=== PATIENT | female | born 1980 | race Caucasian/White ===

== ENCOUNTER 2018-09-30 13:35 | Outpatient (CLI) | payer OTHER | END 2018-09-30 13:36 | disposition home or self-care (01) | LOC: DTY/OP 13:35 | PROVIDERS: ATTEND Surgery | DX: E66.01 Morbid (severe) obesity due to excess calories (principal) | CPT/HCPCS: 97802 ==

== ENCOUNTER 2018-11-01 08:55 | Outpatient (CLI) | payer OTHER | END 2018-11-01 08:56 | disposition home or self-care (01) | LOC: DTY/OP 08:55 | PROVIDERS: ATTEND Surgery | DX: E66.01 Morbid (severe) obesity due to excess calories (principal) | CPT/HCPCS: 97802 ==

== ENCOUNTER 2018-11-30 09:52 | Outpatient (CLI) | payer OTHER | END 2018-11-30 09:53 | disposition home or self-care (01) | LOC: DTY/OP 09:52 | PROVIDERS: ATTEND Surgery | DX: E66.01 Morbid (severe) obesity due to excess calories (principal) | CPT/HCPCS: 97802 ==

== ENCOUNTER 2019-02-07 02:05 | Outpatient (CLI) | payer OTHER ==
[2019-02-07 09:40] LABS: #Basophils 0.1 thou/uL (0.0-0.2); #Eosinphils 0.2 thou/uL (0.0-0.7); #Lymphocytes 2.4 thou/uL (1.20-3.40); #Monocytes 0.4 thou/uL (0.11-0.59); %Basophils 0.9 % (0.0-1.0); %Eosinophils 2.6 % (0.0-10.0); %Lymphocytes 34.3 % (21.0-51.0); %Monocytes 6.1 % (0.0-10.0); %Neutrophils 56.2 % (42.0-75.0); Hemoglobin 12.8 g/dL (12.0-16.0); Mean Corpuscular HGB CONC 32.5 g/dL (32.0-36.0); Mean Corpuscular Hemoglobin 26.5 pg (27.0-31.0); Mean Corpuscular Volume 81.3 fL (78.0-98.0); Mean Platelet Volume 7.2 fL (7.4-10.4); Platelet Count 431 thou/uL (130-400); RBC Distribution Width 12.6 % (11.5-14.5); Red Blood Cell (RBC) Count 4.84 mill/uL (4.20-5.40)
[2019-02-07 09:45] LABS: BHCG - Serum Negative (NEGATIVE); Pregs Control Background? CLEAR/WHITE (CLR/WHITE); Pregs Control Bar Appear? YES (CONTROL BAR)
[2019-02-07 09:59] LABS: Hemoglobin A1c 4.4 % (4.0-6.0)
[2019-02-07 10:00] LABS: ALT (SGPT) 31 U/L (8-55); AST (SGOT) 26 U/L (5-34); Albumin 4.2 g/dL (3.5-5.0); Alkaline Phosphatase 69 U/L (40-150); Anion Gap 11 mmol/L (10-20); BUN (Urea Nitrogen) 14 mg/dL (7.0-18.7); Bilirubin, Direct 0.2 mg/dL (0.1-0.3); Bilirubin, Total 0.5 mg/dL (0.2-1.2); Calc. Creatinine Clearance 0 mL/min (70-130); Calcium 9.4 mg/dL (7.8-10.44); Carbon Dioxide 26 mmol/L (22-29); Chloride 106 mmol/L (98-107); Estimated GFR-MDRD 90; Globulin 3.5 g/dL (2.4-3.5); Glucose 84 mg/dL (70-105); Potassium 3.9 mmol/L (3.5-5.1); Protein, Total 7.7 g/dL (6.0-8.3); Sodium 139 mmol/L (136-145)
--- NOTE | 2019-02-07 11:45 | RAD ---
PA AND LATERAL OF THE CHEST: INDICATION: Preop evaluation. COMPARISON: None. FINDINGS: Lungs are clear. Heart size is normal. No acute osseous abnormality is evident. There are cholecys tectomy clips within the right upper quadrant. There is mild spondylosis of the thoracic spine. The re are cholecystectomy clips within the right upper quadrant. There is mild fullness of the thoracic spine. IMPRESSION: No acute cardiopulmonary abnormality. POS: C
== END 2019-02-07 02:06 | disposition home or self-care (01) ==
LOC: LABBT 02:05
PROVIDERS: ATTEND Surgery
DX: Z01.818 Encounter for other preprocedural examination (principal); E66.01 Morbid (severe) obesity due to excess calories
CPT/HCPCS: 71046; 80053; 80076; 83036; 84703; 85025; 93005; 93010

== ENCOUNTER 2019-02-07 08:30 | Inpatient (IN) | payer OTHER ==
[2019-02-07 08:43] VITALS: BMI 55.7
[2019-02-17] MEDS ORDERED: Heparin 5,000 UNITS/ML VIAL ONE (06:37)
[2019-02-17] MEDS ORDERED: Fentanyl 100 MCG/2 ML VIAL ONE (06:50)
[2019-02-17] MEDS ORDERED: PROPOFOL 40 ML ONE (06:50)
[2019-02-17] MEDS ORDERED: Rocuronium Bromide 50 MG/5 ML VIAL ONE (06:50)
[2019-02-17] MEDS ORDERED: PROPOFOL 20 ML ONE (06:53)
[2019-02-17] MEDS ORDERED: Bupivacaine/Epinephrine 0.25% 30 ML VIAL ONE (06:56)
[2019-02-17] MEDS ORDERED: Midazolam HCl 2 mg/2 ml Vial ONE (07:16)
--- NOTE | 2019-02-17 08:09 | HP ---
CHIEF COMPLAINT: Morbid obesity. HISTORY OF PRESENT ILLNESS: The patient is a 38-year-old female, who has been morbidly obese for many years, attempted multiple weight loss programs without success. She is here for sleeve gastrectomy. PAST MEDICAL HISTORY: Significant for morbid obesity, gastroesophageal reflux, and asthma. PAST SURGICAL HISTORY: She has had pilonidal cyst excision, rectal abscess, bilateral tubal ligation, and a cholecystectomy. MEDICATIONS: 1. Contrave. 2. Polymyxin-trimethoprim. 3. Lactulose. 4. Gentamicin ophthalmic solution. FAMILY HISTORY: Parents are alive in good health. Mother had diabetes and kidney cancer. SOCIAL HISTORY: She is . She is a patient rep. Occasional alcohol. No tobacco. ALLERGIES: SHE HAS NO KNOWN DRUG ALLERGIES. PHYSICAL EXAMINATION: VITAL SIGNS: Height 59, weight 276, and body mass index 55.7. GENERAL: Well-developed, well-nourished female, in no apparent distress. HEENT: Good hair growth. No alopecia. Pupils are equal, round, and reactive. Extraocular motor intact. NECK: Supple. No thyroid masses. No carotid bruits. LUNGS: Clear. HEART: Regular rate and rhythm. BREASTS: There are no palpable breast masses. No lymphadenopathy. ABDOMEN: Obese, soft, and nontender. No palpable masses or hernias. EXTREMITIES: Good pulses. No pedal edema. BACK: Nontender. No spinal deformity. ASSESSMENT: Morbid obesity. PLAN: Laparoscopic sleeve gastrectomy. CONSENT: I discussed planned procedure as well as risk of bleeding, infection, injury to esophagus, bleeding, loops of bowel, need to open, leakage from staple line. She understands and gives informed consent. Job ID: [id number]
[2019-02-17] MEDS ORDERED: Promethazine HCl 25 MG/ML VIAL IM PRN ×3 (09:02→09:52)
[2019-02-17] MEDS ORDERED: diphenhydrAMINE 50 MG/ML VIAL IVP PRN ×2 (09:02→09:52)
[2019-02-17] MEDS ORDERED: Dextrose 50% Abboject 50 ML SYRINGE SLOW IVP PRN (09:02)
[2019-02-17] MEDS ORDERED: Dextrose 5% in Water 1,000 ML IV PRN (09:02)
[2019-02-17] MEDS ORDERED: hydrALAZINE 20 MG/ML VIAL SLOW IVP PRN (09:02)
[2019-02-17] MEDS ORDERED: Ondansetron PF 4 MG/2 ML Vial IVP PRN (09:02)
[2019-02-17] MEDS ORDERED: Hydrocodone-Acetamin 15 ML UDCUP PO PRN (09:02)
[2019-02-17] MEDS ORDERED: Meperidine HCl/PF 25 MG/ML VIAL SLOW IVP PRN (09:17)
[2019-02-17] MEDS ORDERED: Ketorolac Tromethamine 30 MG/ML VIAL IVP PRN (09:17)
[2019-02-17] MEDS ORDERED: Promethazine HCl 25 MG/ML VIAL SLOW IVP PRN (09:17)
[2019-02-17] MEDS ORDERED: Ondansetron HCl/PF 4 MG/2 ML Vial IVP PRN (09:17)
[2019-02-17] MEDS ORDERED: HYDROmorphone 2 MG/ML VIAL SLOW IVP PRN (09:17)
[2019-02-17] MEDS ORDERED: Sodium Chloride 0.9% (PF) 10 ML VIAL FS PRN (09:29)
[2019-02-17] MEDS ORDERED: diphenhydrAMINE 50 MG/ML VIAL IM PRN (09:52)
[2019-02-17] MEDS ORDERED: diphenhydrAMINE 25 MG CAP PO PRN (09:52)
[2019-02-17] MEDS ORDERED: fentaNYL Citrate/PF 2,000 MCG in Sodium Chloride 0.9% 60 ML IV PRN (09:52)
[2019-02-17] MEDS ORDERED: Naloxone HCl 0.4 mg/ml Vial IV PRN (09:52)
[2019-02-17] MEDS ORDERED: Zolpidem Tartrate 5 MG TAB PO PRN (09:52)
--- NOTE | 2019-02-17 09:54 | OP ---
DATE OF PROCEDURE: 02/17/2019 PREOPERATIVE DIAGNOSIS: Morbid obesity. PROCEDURES PERFORMED: Laparoscopic sleeve gastrectomy, esophagogastroscopy. INDICATIONS: A 38-year-old female, morbidly obese, who has attempted multiple weight loss programs without success. FINDINGS: A 38-Kazakh bougie used. DESCRIPTION OF PROCEDURE: After informed consent was obtained, the patient was taken to the operating room and given general endotracheal anesthesia and placed in supine position. Abdomen was prepped and draped in usual fashion. Local anesthesia was infiltrated subcutaneously and deep, and a 12-mm incision was performed approximately 8 inches above the xiphoid slightly to the left. Veress needle inserted. Drop test performed. Pneumoperitoneum was created to a volume of 2 L of carbon dioxide. Utilizing a bladeless 12-mm trocar and 0-degree laparoscope, direct visual entry into the abdominal cavity was performed. Pneumoperitoneum was created to a pressure of 15 mmHg and the patient placed in steep reverse Trendelenburg position. Roxy liver retractor inserted. Left lobe of liver retracted superiorly. The pylorus identified. A 12 mm port placed on the right beneath it and two 12s placed left subcostal. The omentum was taken off the greater curvature 5 cm from the pylorus utilizing the LigaSure. The short gastrics divided with LigaSure and the left crura defined with the LigaSure. A 38-K[place] bougie inserted and directed into the antrum. The linear 60 mm green load stapler used to divide the antrum to the bougie, gold load along the bougie, and a series of blues through the angle of His. Intraoperative endoscopy was performed. The video endoscope inserted under direct vision and advanced into the sleeve. The staple line inspected. There was no bleeding. Staple line then tested by inflating the new stomach with pressurized air under water, there was no air leak. Stomach was decompressed. Scope removed. The remnant stomach was removed from the abdomen through the left lateral port site. The fascia closed with 0 Vicryl suture and the GraNee needle. Trocars and retractors removed. The skin was closed with interrupted 4-0 Rapide. Dermabond applied. The patient tolerated the procedure well, transferred to Recovery in good condition. Sponge and needle count verified correct x2. Job ID: [id number]
[2019-02-17] MEDS ORDERED: Communication Order-Pharmacy FS SCH (10:00)
[2019-02-17] MEDS: CEFAZOLIN 2 GM in Premix Bag 1 BAG IVPB SCH ×2 (14:29→22:30)
[2019-02-17] MEDS: D5 1/2 NS w/20 mEq KCL 1,000 ML IV SCH ×3 (14:29→22:31)
[2019-02-17] MEDS: Ondansetron PF 4 MG/2 ML Vial IVP PRN (19:59)
[2019-02-18] MEDS: Ondansetron PF 4 MG/2 ML Vial IVP PRN (05:40)
[2019-02-18] MEDS ORDERED: Enoxaparin Sodium 40 MG/0.4 ML SYRINGE SC SCH (06:00)
[2019-02-18 06:48] LABS: #Lymphocytes 1.4 thou/uL (1.20-3.40); #Monocytes 0.6 thou/uL (0.11-0.59); #Neutrophils 8.8 thou/uL (1.40-6.50); %Basophils 0.1 % (0.0-1.0); %Monocytes 5.8 % (0.0-10.0); %Neutrophils 81.1 % (42.0-75.0); Hemoglobin 12.1 g/dL (12.0-16.0); Mean Corpuscular HGB CONC 33.1 g/dL (32.0-36.0); Mean Corpuscular Hemoglobin 27.6 pg (27.0-31.0); Mean Corpuscular Volume 83.3 fL (78.0-98.0); Mean Platelet Volume 7.8 fL (7.4-10.4); Platelet Count 370 thou/uL (130-400); RBC Distribution Width 12.7 % (11.5-14.5); Red Blood Cell (RBC) Count 4.38 mill/uL (4.20-5.40); White Blood Cell (WBC) Count 10.9 thou/uL (4.8-10.8)
[2019-02-18 07:09] LABS: Anion Gap 12 mmol/L (10-20); BUN (Urea Nitrogen) 7 mg/dL (7.0-18.7); Calc. Creatinine Clearance 196 mL/min (70-130); Calcium 8.7 mg/dL (7.8-10.44); Carbon Dioxide 25 mmol/L (22-29); Chloride 107 mmol/L (98-107); Estimated GFR-MDRD 85; Glucose 129 mg/dL (70-105); Potassium 4.3 mmol/L (3.5-5.1); Sodium 140 mmol/L (136-145)
--- NOTE | 2019-02-18 08:12 | RAD ---
XR UGI Single Contrast No Air HISTORY: Recent vertical sleeve gastrectomy Post bariatric surgery evaluation Procedure: Single sip swallow study was performed with administration of 15 mL contrast under fluoros copy. FINDINGS: Contrast traverses the gastroesophageal junction slowly with associated GE reflux. No leak or evidence of high-grade obstruction. IMPRESSION: Partial obstruction likely due to edema at the surgical site.
[2019-02-18] MEDS ORDERED: Pantoprazole 40 MG VIAL IVP SCH (09:00)
[2019-02-18] MEDS ORDERED: Hydrocodone-Acetamin 15 ML UDCUP PO PRN (09:16)
[2019-02-18] MEDS: D5 1/2 NS w/20 mEq KCL 1,000 ML IV SCH (09:38)
[2019-02-18 11:44] VITALS: BP 119/76; TEMP 97.7
[2019-02-19] MEDS ORDERED: Enoxaparin Sodium 40 MG/0.4 ML SYRINGE SC SCH (09:00)
== END 2019-02-18 13:20 | disposition home or self-care (01) | DRG 621 ==
LOC: SURG A 02-17 05:54
PROVIDERS: ADMIT Surgery; ATTEND Surgery
PROC: 0DB64Z3 Excision of Stomach, Percutaneous Endoscopic Approach, Vertical (ICD-10-PCS; principal; 2019-02-17)
PROC: 0DJ68ZZ Inspection of Stomach, Via Natural or Artificial Opening Endoscopic (ICD-10-PCS; 2019-02-17)
DX: E66.01 Morbid (severe) obesity due to excess calories (principal); K21.9 Gastro-esophageal reflux disease without esophagitis; J45.909 Unspecified asthma, uncomplicated; Z98.51 Tubal ligation status; Z90.49 Acquired absence of other specified parts of digestive tract; Z68.43 Body mass index [BMI] 50.0-59.9, adult
CPT/HCPCS: 36415; 74241; 80048; 85025; 88307; 88312; C9113; J0131; J0690; J1644; J1650; J2250; J2405; J2704; J3010; J3490